=== PATIENT | female | born 1985 | race Caucasian/White ===

== ENCOUNTER 2016-07-26 06:36 | Inpatient (IN) | payer MEDICAID, SELFPAY ==
[2016-07-26] MEDS ORDERED: Methylergonovine 0.2 MG/1 ML Amp IM PRN (07:30)
[2016-07-26] MEDS ORDERED: Carboprost Tromethamine 250 MCG/1 ML Amp IM PRN (07:30)
[2016-07-26] MEDS ORDERED: Lactated Ringers 500 ML IV ONE (07:30)
[2016-07-26] MEDS ORDERED: Lidocaine 1% 30 ML SDV INJECT PRN (07:30)
[2016-07-26] MEDS ORDERED: Sodium Chloride 0.9% 10 ML Syringe FLUSH PRN (07:30)
[2016-07-26] MEDS ORDERED: Misoprostol 400 MCG (4 X 100 MCG TAB) RECTAL PRN (07:30)
[2016-07-26] MEDS ORDERED: Ondansetron 4 MG/2 ML SDV IV PRN (07:30)
[2016-07-26] MEDS: Lactated Ringers 1,000 ML IV SCH ×3 (07:32→10:53)
--- NOTE | 2016-07-26 10:27 | PCM.SN ---
- Free Text/Narrative Note: Intrathecal. Sitting position. sterile prep and drape. 1 % lidocaine w bicarb for skinwheal to L2 L3 interspace. Introducer, 24 ga pencan x 1. pos CSF, neg heme neg parasthesia. 1:1000 pf epi wash, 15 mcg pf sufenta, 35 mcg pf fentanyl and 6 mg of 0.75% pf bupivacaine injected after CSF aspiration. Pt to L lateral position. Procedure time 0945 - 2104
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
[2016-07-26] MEDS: Oxytocin/Normal Saline 30 UNIT/500 ML BAG IV SCH ×2 (11:34→15:53)
--- NOTE | 2016-07-26 11:42 | PN ---
DATE: 07/26/2016 TIME: 10:44 a.m. SUBJECTIVE: The patient is comfortable. She is now has intrathecal in place, feeling somewhat nauseous especially from that but otherwise doing well with no other complaints. OBJECTIVE: Vital Signs: Blood pressure 95/47, pulse 69, she is afebrile, heart tone tracing at 120 beats per minute, moderate mequ-vd-upfz variability. Accelerations are noted. [place] shows contractions about every 4 minutes. They seemed to space a little bit after the intrathecal. Cervical is 6 cm dilated, 90% effaced, -2 station. Bag of water was intact and ruptured with return of clear fluid. The patient tolerated well. Procedure was performed by Hanna Crabtree, MS III, under my direct supervision. ASSESSMENT: A 40 and 6/7th weeks, 6 para 1-0-4-1 in active spontaneous labor now status post rupture with intrathecal in place. PLAN: Continuous expectant labor management. Make sure mother and baby tolerate everything well and we will come back to check on them periodically and as called. [facility] /[id number] MTDD
[2016-07-26] MEDS ORDERED: Simethicone 80 MG Tab.Chew PO PRN (14:28)
[2016-07-26] MEDS: Ibuprofen 800 MG Tab PO PRN (16:05)
[2016-07-26] MEDS: Benzocaine/Menthol 20%-0.5% Spray 56 GM Canister TOP PRN (20:01)
[2016-07-26] MEDS: Acetaminophen 325 MG Tab PO PRN (20:02)
[2016-07-26] MEDS: Docusate Sodium 100 MG Cap PO PRN (20:03)
[2016-07-27] MEDS: Acetaminophen 325 MG Tab PO PRN (01:39)
[2016-07-27] MEDS: Ibuprofen 800 MG Tab PO PRN ×3 (01:40→22:07)
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
[2016-07-27] MEDS: Acetaminophen/HYDROcodone 325-10 MG Tab PO PRN ×4 (05:37→22:07)
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
[2016-07-27] MEDS: Prenatal Multivitamin with Calcium/Folic Acid/Iron Tab PO SCH (09:14)
[2016-07-27] MEDS: Docusate Sodium 100 MG Cap PO PRN ×2 (09:15→22:08)
[2016-07-27] MEDS: Ferrous Sulfate 325 MG Tab PO SCH (09:15)
[2016-07-28] MEDS: Acetaminophen/HYDROcodone 325-10 MG Tab PO PRN (05:40)
[2016-07-28] MEDS: Benzocaine/Menthol 20%-0.5% Spray 56 GM Canister TOP PRN (06:00)
[2016-07-28] MEDS: Ferrous Sulfate 325 MG Tab PO SCH (08:17)
[2016-07-28] MEDS: Prenatal Multivitamin with Calcium/Folic Acid/Iron Tab PO SCH (08:17)
[2016-07-28] MEDS: Ibuprofen 800 MG Tab PO PRN (08:18)
[2016-07-28] MEDS: Docusate Sodium 100 MG Cap PO PRN (08:18)
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
[2016-07-28 08:48] VITALS: BP 112/65
[2016-07-28] MEDS ORDERED: fentaNYL 100 MCG/2 ML SDV IV ONE (11:43)
== END 2016-07-28 11:44 | disposition home or self-care (01) | DRG 767 ==
LOC: DL.OBCHECK 06:36 → DL.OB 06:50 → OBSVTOIN 13:27 → DL.OB 13:27 → DL.MS 07-27 14:01
PROVIDERS: ADMIT Family Medicine; ATTEND Family Medicine
PROC: 00HU33Z Insertion of Infusion Device into Spinal Canal, Percutaneous Approach (ICD-10-PCS; principal; 2016-07-26)
PROC: 10E0XZZ Delivery of Products of Conception, External Approach (ICD-10-PCS; 2016-07-26)
PROC: 0KQM0ZZ Repair Perineum Muscle, Open Approach (ICD-10-PCS; 2016-07-26)
PROC: 10907ZC Drainage of Amniotic Fluid, Therapeutic from Products of Conception, Via Natural or Artificial Opening (ICD-10-PCS; 2016-07-26)
PROC: 0UQJXZZ Repair Clitoris, External Approach (ICD-10-PCS; 2016-07-26)
PROC: 10D17ZZ Extraction of Products of Conception, Retained, Via Natural or Artificial Opening (ICD-10-PCS; 2016-07-26)
DX: O66.0 Obstructed labor due to shoulder dystocia (principal); O71.4 Obstetric high vaginal laceration alone; O71.89 Other specified obstetric trauma; Z3A.41 41 weeks gestation of pregnancy; Z37.0 Single live birth; O26.899 Other specified pregnancy related conditions, unspecified trimester; F32.9 Major depressive disorder, single episode, unspecified; F41.9 Anxiety disorder, unspecified; O26.20 Pregnancy care for patient with recurrent pregnancy loss, unspecified trimester; R12 Heartburn; O90.81 Anemia of the puerperium
CPT/HCPCS: 01967; 36415; 85027; A9270-GY; J2405; J2590; J3010; J7120

== ENCOUNTER 2019-06-24 21:14 | Inpatient (IN) | payer MEDICAID ==
[~2019-06-24 21:14] MED LIST: Acetaminophen 325 MG Tab PO PRN; Carboprost Tromethamine 250 MCG/1 ML Amp IM PRN; Lactated Ringers 1,000 ML IV ONE; Lidocaine 1% 30 ML SDV INJECT PRN; Methylergonovine 0.2 MG/1 ML Amp IM PRN; Misoprostol 400 MCG (4 X 100 MCG TAB) RECTAL PRN; Ondansetron 4 MG/2 ML SDV IVPUSH PRN; Sodium Chloride 0.9% 10 ML Syringe FLUSH PRN; Tranexamic Acid 1,000 MG in Sodium Chloride 0.9% 100 ML IV PRN; fentaNYL 100 MCG/2 ML SDV IVPUSH PRN
[2019-06-24] MEDS ORDERED: Oxytocin/Normal Saline 30 UNIT/500 ML BAG IV SCH (21:15)
[2019-06-24] MEDS ORDERED: Lactated Ringers 1,000 ML IV SCH (21:15)
--- NOTE | 2019-06-24 21:33 | PCM.SN ---
- Free Text/Narrative Note: OB History and Physical 06/24/19 Chief Complaint: contractions HPI: 34 y.o. year old at 38w6d (Estimated Date of Delivery: 07/02/19) who presents with contractions since 1800 this evening. They are painful and occurring every 3-4 minutes. She has noted some more mucous discharge and some bloody tinged discharge, but no gush or leaking of fluid. She reports active movement. has been uncomplicated. ROS: Negative for headache, vomiting, diarrhea, fever, chills, hematuria, dysuria, loss of fluid per vagina. 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 Curry also has MS. OB Hx: Therapeutic in 2005, past term delivery (42w) in 2007 with 8lb6oz baby via VAVD, three SAB in 2009, 2014, and 2016, term delivery (40w6d) in 2017 [id number] Social Hx: FOB is True [place]. Denies smoking, drinking or recreational drug use since 2017. Labs: Blood Type: B Positive Rubella: Immune HBSAg: Nonreactive GBS: Negative Gonorrhea/Chlamydia: Not Detected HIV: Nonreactive RPR: Nonreactive Quad screen: normal PTL: 251 Hgb:12.5 Physical Exam: Vitals: blood pressure 123/78, HR 92, Temp 98.4 Gen: No distress CV: Well-perfused, 2+ distal pulses, regular rate and rhythm, no audible murmurs Resp: Non-labored, symmetrical chest expansion, clear to auscultation Abd: gravid, soft, non tender Ext: Moves all extremities, no edema. SVE: 5/100/-2, tense bag FHT: 125, moderate variability, accelerations present, no decelerations noted CTX: Q 2-4 mins Assessment: 34 y.o. year old at 38w6d who presents with active labor. Cat I Strip Anemia of , improved with oral iron therapy H/o recurrent abortions Plan: - admit to labor and delivery - routine cares - may have intrathecal if/when desired - will consider augmentation with AROM - will follow closely Alexandrea Bautista MD
[2019-06-24] MEDS ORDERED: fentaNYL 100 MCG/2 ML SDV ONE (21:38)
[2019-06-24] MEDS ORDERED: Sodium Bicarbonate 4.2% 2.5 MEQ/5 ML SDV ONE (21:39)
--- NOTE | 2019-06-24 22:02 | PCM.SN ---
- Free Text/Narrative Note: Intrathecal. Sitting position,sterile prep and drape, 1% lidocaine w bicarb for skinwheal to L2 L3 interspace, introducer, 24 ga pencan x 1. Pos CSF, neg heme, neg parasthesia, 15 mcg pf sufenta, 35 mcg fentanyl, 0.4 ml pf ns and 6 mg of 0.75% pf bupivacaine injected after CSF aspiration. Pt to L lateral position. Procedure time 2140 to 2210
--- NOTE | 2019-06-24 22:39 | PCM.DEL ---
L & D Note - General Info Date of Service: 06/24/19 (2211) Mother's Due Date: 07/02/19 - Delivery Note Labor: Spontaneous Delivery Outcome: Livebirth Delivery Method: Spontaneous Vaginal Delivery-Single Infant Delivery Mode: Spontaneous Presentation: Right Occiput Anterior (POP) Nuchal Cord: None Anesthesia Type: Intrathecal Amniotic Fluid Description: Bloody (tinged) Episiotomy Type: None Laceration: Vaginal Suture type: Vicryl Suture size: 3-0 Placenta: Intact, Spontaneous Cord: 3 Vessels Estimated Blood Loss: 150 : Bulb Syringe, Stimulated, Success Used Score 1 min: 8 Score 5 min: 9 Second Stage Interventions: Reports: Laboring Down, Pushing Effectively Delivery Comments (Free Text/Narrative):: Mallory Tovar is a 34 y.o. at 38w6d who presented with active labor. Category 1 tracing upon admission. She was dilated to 5 cm upon admission. She progressed without augmentation. Artificial rupture of membranes at 2159 with blood tinged fluid. She was complete at 2208. She began pushing at approximately 2210. Delivered a liveborn female at 2211. Vigorous with spontaneous cry. Apgars of 8 and 9. weight 2975 g. Placenta delivered spontaneously intact with a 3 vessel cord. IV Pitocin was started shortly after delivery of the placenta. EBL 150 mL. Second degree posterior vaginal laceration,without extension into the perineum, repaired with 3-0 Vicryl suture. Hemostasis confirmed. Mother and doing well. - General Info Date of Service: 06/24/19 - Problem List Review Problem List Initiated/Reviewed/Updated: Yes - Assessment Assessment:: Mallory Tovar is a 34 y.o. at 38w6d who presented with active labor and delivered a vigorous female at 2211 on 06/24/19. - Plan Plan:: Plan: - routine cares - encourage parental bonding - encouraged mom to call nursing prior to getting up for the first few times due to the intrathecal - will follow closely Alexandrea Bautista MD
[2019-06-25] MEDS ORDERED: Benzocaine/Menthol 20%-0.5% Spray 56 GM Canister TOP PRN (00:10)
[2019-06-25] MEDS ORDERED: Simethicone 80 MG Tab.Chew PO PRN (00:10)
[2019-06-25] MEDS ORDERED: Oxytocin 10 Units/1 ML SDV IM PRN (00:10)
[2019-06-25] MEDS ORDERED: Zolpidem 5 MG Tab PO PRN (00:10)
[2019-06-25] MEDS ORDERED: Sodium Chloride 0.9% 10 ML Syringe FLUSH PRN (00:10)
[2019-06-25] MEDS: Ibuprofen 800 MG Tab PO PRN ×2 (04:42→16:30)
--- NOTE | 2019-06-25 08:35 | PCM.SN ---
- Free Text/Narrative Note: Post Delivery Day #1 06/25/19 Subjective: Patient is ambulating without assistance and tolerating oral intake. Her pain has been well-controlled, and her bleeding has been minimal. She has not had nausea, vomiting, blurred vision, diarrhea, shortness of breath, or any other complaints. She is with supplementing after. Objective: Vitals stable Gen: No distress CV: Well-perfused, 2+ distal pulses Resp: Non-labored, symmetrical chest expansion Abd: Fundus is firm and below umbilicus. Ext: Moves all extremities Well, no edema. Assessment: 34 yo G7 now [id number] Status post at 38w6d ( day #1) who is doing well. Anemia of , improved with oral iron therapy H/o recurrent miscarriages Plan: - Routine nursing - vitamin - Likely discharge tomorrow Alexandrea Bautista MD
[2019-06-25] MEDS: Docusate Sodium 100 MG Cap PO PRN ×2 (08:38→20:39)
[2019-06-25] MEDS: Prenatal Multivitamin with Calcium/Folic Acid/Iron Tab PO SCH (08:38)
[2019-06-25] MEDS: Acetaminophen 325 MG Tab PO PRN ×2 (10:23→20:39)
[2019-06-26] MEDS: Ibuprofen 800 MG Tab PO PRN (02:03)
[2019-06-26] MEDS: Acetaminophen 325 MG Tab PO PRN (07:52)
[2019-06-26] MEDS: Docusate Sodium 100 MG Cap PO PRN (07:52)
[2019-06-26] MEDS: Prenatal Multivitamin with Calcium/Folic Acid/Iron Tab PO SCH ×2 (07:52→12:13)
--- NOTE | 2019-06-26 09:07 | PCM.SN ---
- Free Text/Narrative Note: Progress Note/Discharge Summary Admit date: 06/24/19 Discharge date: 06/26/19 Delivering Physician: Dr. Bautista Discharging Physician: Dr. Bautista Admission Diagnoses: No admission diagnoses are documented for this encounter. at 38w6d Summary of Hospital Course: Mallory Tovar is a 34 y.o. who presented to labor and delivery on 06/24/29 in active labor. She underwent normal spontaneous vaginal delivery and delivered a viable infant weighing 2975 grams with Apgars of 8 and 9 at 1 and 5 minutes respectively. EBL was 150 mL. The patient had an unremarkable course. By day 2, the patient was doing well; ambulating, voiding, and tolerating general diet. Her pain was well controlled with oral pain medications, and was she was discharged to home. Admission hemoglobin was 12.5 gm/dL. Discharge Exam: Gen: No distress CV: Well-perfused, 2+ distal pulses Resp: Non-Labored, symmetrical chest expansion Abd: Fundus is firm and below umbilicus. Ext: Moves all extremities well, no edema. Discharge (or Final) Diagnoses: 1. Intrauterine at 38w6d 2. Normal Spontaneous Vaginal Delivery 3. Anemia of , improved with oral iron therapy 4. H/o recurrent abortions Discharge Details: Admission Condition: good Discharged Condition: good Disposition: Home Discharge Medications: over the counter ibuprofen Diet: regular diet Activity: no heavy lifting for 2 weeks, pelvic rest for 6 weeks. Follow-up with Dr. Bautista in 6-8 weeks for visit. Alexandrea Bautista MD
[2019-06-26 12:16] VITALS: BP 106/74; PULSE 68
== END 2019-06-26 11:50 | disposition home or self-care (01) | DRG 807 ==
LOC: DL.OBCHECK 21:14 → UNDOADMIN 21:17 → DL.OB 21:17
PROVIDERS: ADMIT Family Medicine; ATTEND Family Medicine
PROC: 10E0XZZ Delivery of Products of Conception, External Approach (ICD-10-PCS; principal; 2019-06-24)
PROC: 0KQM0ZZ Repair Perineum Muscle, Open Approach (ICD-10-PCS; 2019-06-24)
PROC: 10907ZC Drainage of Amniotic Fluid, Therapeutic from Products of Conception, Via Natural or Artificial Opening (ICD-10-PCS; 2019-06-24)
PROC: 3E0R3BZ Introduction of Anesthetic Agent into Spinal Canal, Percutaneous Approach (ICD-10-PCS; 2019-06-24)
PROC: 00HU33Z Insertion of Infusion Device into Spinal Canal, Percutaneous Approach (ICD-10-PCS; 2019-06-24)
DX: O99.02 Anemia complicating childbirth (principal); Z37.0 Single live birth; O70.1 Second degree perineal laceration during delivery; Z3A.38 38 weeks gestation of pregnancy
CPT/HCPCS: 36415; 59409; 85027; A9270-GY; J2405; J2590; J7120

== ENCOUNTER 2019-08-30 02:14 | Emergency (ER) | payer MEDICAID ==
[2019-08-30 02:34] VITALS: BP 144/82; PULSE 77
[2019-08-30] MEDS ORDERED: Cephalexin 500 MG Cap PO ONE (02:34)
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
== END 2019-08-30 02:52 | disposition home or self-care (01) ==
LOC: DL.ED 02:14
DX: L03.115 Cellulitis of right lower limb (principal); F19.10 Other psychoactive substance abuse, uncomplicated; F41.9 Anxiety disorder, unspecified; Z79.899 Other long term (current) drug therapy
CPT/HCPCS: 99283; A9270